=== PATIENT | female | born 1990 | race Hispanic/Latino ===

== ENCOUNTER 2017-04-20 16:57 | Emergency (ER) | payer MEDICAID, OTHER ==
[~2017-04-20 16:57] MED LIST: PNV91TAB3 PO
[2017-04-20 17:37] LABS: BILIRUBIN,URINE Negative (NEGATIVE); COLOR,URINE Yellow (YELLOW); GLUCOSE, URINE (UA) Negative (NEGATIVE); KETONES,URINE Negative (NEGATIVE); LEUKOCYTE ESTERASE ,URINE Moderate (NEGATIVE); NITRATE,URINE Negative (NEGATIVE); OCCULT BLOOD,URINE Negative (NEGATIVE); PH,URINE >=9.0 (5.0-8.0); PROTEIN,URINE Trace (NEGATIVE); UROBILINOGEN,URINE 0.2 mg/dL (0.2-1.0)
[2017-04-20 17:45] LABS: APPEARANCE,URINE CLOUDY (CLEAR)
[2017-04-20 17:46] LABS: HCG,QUAL RESULT NEGATIVE (NEGATIVE)
[2017-04-20 18:38] LABS: AMORPHOUS SEDIMENT,UR Moderate /LPF (None Seen); BACTERIA,URINE Few /HPF (None Seen); SQUAMOUS EPITHELIAL CELL,UR Rare /LPF (0-2)
== END 2017-04-20 18:22 | disposition home or self-care (01) ==
LOC: EDH 16:57
DX: N39.0 Urinary tract infection, site not specified (principal); Z90.49 Acquired absence of other specified parts of digestive tract
CPT/HCPCS: 81001; 81025

== ENCOUNTER 2019-08-09 17:36 | Inpatient (IN) | payer MEDICAID ==
[~2019-08-09] VITALS: Ht 170.2 cm; Wt 77.6 kg
[2019-08-09] MEDS ORDERED: LACTATED RINGERS 1000ML 1,000 ML IV PRN (18:44)
[2019-08-09] MEDS ORDERED: MISOPROSTOL 25 MCG TABLET VG SCH (18:45)
[2019-08-09 19:34] LABS: APPEARANCE,URINE Clear (CLEAR); BILIRUBIN,URINE Negative (NEGATIVE); COLOR,URINE Yellow (YELLOW); GLUCOSE, URINE (UA) Negative (NEGATIVE); KETONES,URINE Negative (NEGATIVE); LEUKOCYTE ESTERASE ,URINE Small (NEGATIVE); NITRATE,URINE Negative (NEGATIVE); OCCULT BLOOD,URINE Negative (NEGATIVE); PROTEIN,URINE Trace mg/dL (NEGATIVE)
[2019-08-09 19:46] LABS: HEMATOCRIT 38.6 % (36-48); MEAN CORPUSCULAR HEMOGLOBIN 30.6 pg (27.0-33.0); MEAN CORPUSCULAR HGB CONC 34.7 g/dL (32.0-36.0); MEAN CORPUSCULAR VOLUME 88.1 fL (79-99); RED BLOOD CELL COUNT(AUTO) 4.38 MIL/uL (4.00-5.50); RED CELL DISTRIBUTION WIDTH 13.8 % (11.0-15.5); WHITE BLOOD COUNT (AUTO) 9.3 K/uL (4.8-10.8)
[2019-08-09 19:56] LABS: BACTERIA,URINE Few /HPF (None Seen); MUCUS,URINE Few LPF (None Seen); RBC,URINE 0-1 /HPF (0-1); SQUAMOUS EPITHELIAL CELL,UR Many /HPF (0-2)
[2019-08-09 20:00] VITALS: BP 117/67
[2019-08-10] MEDS ORDERED: OXYTOCIN-LR 20 UNITS/1000 ML 1,000 ML IV ONE (02:42)
[2019-08-10] MEDS ORDERED: OXYTOCIN 10 USP UNITS/ML 20 UNIT in LACTATED RINGERS 1000ML 1,000 ML IV SCH (06:00)
[2019-08-10 08:57] LABS: AMPHET/METH SCREEN,URINE NEGATIVE (NEGATIVE); BARBITURATE SCREEN, URINE NEGATIVE (NEGATIVE); BENZODIAZEPINES SCREEN,URINE NEGATIVE (NEGATIVE); CANNABINOID SCREEN,URINE NEGATIVE (NEGATIVE); COCAINE SCREEN,URINE NEGATIVE (NEGATIVE); OPIATE SCREEN,URINE NEGATIVE (NEGATIVE); PHENCYCLIDINE SCREEN,URINE NEGATIVE (NEGATIVE)
[2019-08-10] MEDS ORDERED: BUTORPHANOL TARTRATE 2 MG/ML IVP PRN (09:00)
[2019-08-10] MEDS ORDERED: LACTATED RINGERS 500 ML 500 ML IV PRN (09:00)
[2019-08-10] MEDS ORDERED: EPHEDRINE SULFATE 50 MG/ML AMPULE IVP PRN (09:00)
[2019-08-10] MEDS ORDERED: NALOXONE HCL 0.4 MG/1 ML ML IV PRN (09:00)
[2019-08-10] MEDS ORDERED: BUTORPHANOL TARTRATE 2 MG/ML ONE (09:02)
[2019-08-10] MEDS ORDERED: LIDOCAINE HCL 1% 20 ML VIAL ONE (10:56)
[2019-08-10] MEDS ORDERED: OXYTOCIN 10 USP UNITS/ML ONE (11:08)
[2019-08-10] MEDS ORDERED: MISOPROSTOL 200 MCG TABLET ONE (11:09)
[2019-08-10] MEDS ORDERED: ACETAMINOPHEN 325 MG TAB PO PRN (11:30)
[2019-08-10] MEDS ORDERED: DIPH,PERTUSS(ACELL),TET VAC/PF 0.5 ML VIAL IM PRN (11:30)
[2019-08-10] MEDS ORDERED: BENZOCAINE/LANOLIN/ALOE VERA 60 ML AEROSOL TP PRN (11:30)
[2019-08-10] MEDS ORDERED: ACETAMINOPHEN-CODEINE 300/30MG TAB PO PRN (11:30)
[2019-08-10] MEDS ORDERED: LANOLIN 30GM OINTMENT TP PRN (11:30)
[2019-08-10] MEDS ORDERED: MEASLES/MUMPS/RUBELLA VACCINE, LIVE 0.5 ML/VIAL SQ PRN (11:30)
[2019-08-10] MEDS ORDERED: WITCH HAZEL 1 PAD TP PRN (11:30)
[2019-08-10 12:19] VITALS: BP 111/67
[2019-08-10] MEDS: IBUPROFEN 600 MG TABLET PO PRN (12:26)
--- NOTE | 2019-08-10 13:10 | NUR ---
assisted to the bathroom, voided 400ml, pericare done, assisted back to bed. RECOVERY QBL- 127 ML Addendum: 08/10/19 at 1529 by JAQUAN CABALLERO RN Amended: Links added.
[2019-08-10 16:26] VITALS: BP 103/60
[2019-08-10 19:30] VITALS: BP 111/57
[2019-08-10] MEDS: DOCUSATE SODIUM 100 MG CAP PO SCH (21:09)
[2019-08-10 23:47] VITALS: BP 117/69
[2019-08-11] MEDS: IBUPROFEN 600 MG TABLET PO PRN ×2 (01:00→09:22)
[2019-08-11 03:30] VITALS: BP 97/57
[2019-08-11 07:28] VITALS: BP 118/77
[2019-08-11 08:13] LABS: HEPATITIS Bs ANTIGEN SCREEN P Negative (Negative)
[2019-08-11] MEDS: DOCUSATE SODIUM 100 MG CAP PO SCH (09:22)
--- NOTE | 2019-08-11 09:59 | NUR ---
HX OF ANXIETY, DEPRESSION, IDEATIONS, AND POST DEPRESSION , Sw met with pt who was alone, awake, alert and appeared tired, flat affect. Pt states she had a rough delivery yesterday. Pt reports FOB not involved and her life. This is second son for pt Anthony Sellers, and 4yro son. Pts aunt Michelle Beck is caring for 4yro while pt is admitted. Pt's mother Mary Sellers is ER contact, but pt reports they have not spoke in a long time and she does not know where mother is now. 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 Pt states she lost food stamps because of income and plans to reapply. Father of older son involved with son, but pays no child support. Pt has basic items for NB including car seat and Dr Toro will follow baby after dc. Aunt is support system and assists as able. Pt reports she has never been dx with anxiety or epression but knows she has them. Pt takes DAKOTA she buys off [email or web address] for anxiety. Pt reports hx of post depression after of son that lasted "for some time". Pt states she had mixed emotions, crying, but no thoughts of hurt self or baby during that time. Pt states she kept her mind busy and exercised to cope during that tie and recently at end of for anxiety. Pt states she never reported to [facility], but plans to this time, because she does not want to go thru it again. Encouraged pt to discuss hx and concerns with nurse and Dr Dan before dc.Pt reports hx of ideations 4to 5 yrs ago, but denies any recently or since then. Pt refused resources for counseling offered. Pt denies hx of suicide attempts or psych care or placements. Pt denies hx of abuse, substance abuse, CPS or legal issues. Sw notified nurse Donohue of hx and concerns and she will inform Dr Dan. Addendum: 08/11/19 at 1019 by FLOR FLORENCE SS Amended: Links added.
--- NOTE | 2019-08-11 10:30 | NUR ---
DR. VIZCARRA INFORMED OF PT MEETING WITH OFFSET PLATE MAKER, KIM AND OF PT VERBALIZING HAVING ANXIETY TOWARDS THE END OF THE . PRESCRIPTION RECEIVED FOR PROZAC TO GIVE TO PT. PT WILL BE REMINDED TO CONTINUE WITH FOLLOW UP AND TO CALL OFFICE FOR ANY CONCERNS BEFORE FOLLOW UP VISIT.
[2019-08-11 11:44] VITALS: BP 128/57
[2019-08-11 16:27] VITALS: BP 123/74
--- NOTE | 2019-08-11 17:15 | NUR ---
DISCHARGE PT LEFT UNIT VIA WHEELCHAIR, WITH BABY IN ARMS, ACCOMPANIED BY FAMILY MEMBER. DENIED PAIN AND HAD NO COMPLAINTS. BABY STRAPPED IN CAR SEAT. PT AND BABY TRANSPORTED BY PERSONAL VEHICLE.
== END 2019-08-11 17:15 | disposition home or self-care (01) | DRG 560 ==
LOC: LDH 17:36 → WSH 08-10 12:08 → PREOBSVTOIN 08-17 17:36
PROVIDERS: ADMIT Obstetrics & Gynecology; ATTEND Obstetrics & Gynecology
PROC: 0KQM0ZZ Repair Perineum Muscle, Open Approach (ICD-10-PCS; principal; 2019-08-10)
PROC: 10E0XZZ Delivery of Products of Conception, External Approach (ICD-10-PCS; 2019-08-10)
PROC: 3E0234Z Introduction of Serum, Toxoid and Vaccine into Muscle, Percutaneous Approach (ICD-10-PCS; 2019-08-10)
PROC: 3E0134Z Introduction of Serum, Toxoid and Vaccine into Subcutaneous Tissue, Percutaneous Approach (ICD-10-PCS; 2019-08-10)
PROC: 10907ZC Drainage of Amniotic Fluid, Therapeutic from Products of Conception, Via Natural or Artificial Opening (ICD-10-PCS; 2019-08-10)
DX: O70.1 Second degree perineal laceration during delivery (principal); Z37.0 Single live birth; O72.1 Other immediate postpartum hemorrhage; Z23 Encounter for immunization; Z3A.39 39 weeks gestation of pregnancy
CPT/HCPCS: 36415; 80305; 81001; 85027; 86592; 86850; 86900; 86901; 87340; A4351; A4606; G0378; J0595; J2590; J7120